=== PATIENT | male | born 2000 | race American Indian/Alaskan Native ===

== ENCOUNTER 2025-04-21 21:31 | Emergency (ER) | payer SELFPAY ==
[2025-04-21 21:37] VITALS: BP 128/81
--- NOTE | 2025-04-22 00:16 | ED.SKININJ ---
HPI-Injury
General
Chief Complaint: Skin Problem
Source: patient
Exam Limitations: none
Time Seen by Provider: 04/21/25 23:17
Nursing documentation reviewed up to this point in time: agreed with
History of Present Illness-Injury
Is this injury a work related problem?: No
Is pt an associate of [facility]?: No
Initial Injury comments:
Patient to ED with stuck ring to right middle finger. He placed ring on finger 2 weeks ago and cant remove it. Brought self to ED for ring removal.
Past History
Past History
ED Past Medical History: None
Review of Systems
Review of Systems
Allergies reviewed?: Yes
All Other Systems: ROS reviewed and negative except as documented in HPI and ROS
Constitutional: Reports no symptoms
Musculoskeletal: Reports joint swelling (swelling right middle finger)
Skin: Reports other (mild swelling to right middle finger, stuck ring)
Psychiatric: Reports no symptoms
Phy Exam
General Physical Exam
General Presentation: well appearing and no apparent distress
General age: appears stated age
General Skin: warm and dry
General Habitus: normal
Musculoskeletal Exam
Musculoskeletal Exam: full ROM and neuro vasc intact
Skin Exam
Skin Exam: normal color, warm/dry and no rash
Psychiatric Exam
Psychiatric Exam: normal mood/affect
Course
Vital Signs
Initial and Last Documented VS:
Initial Vital Signs
Temp Pulse Resp BP Pulse Ox
98.0 F 72 18 128/81 98
04/21/25 21:37 04/21/25 21:37 04/21/25 21:37 04/21/25 21:37 04/21/25 21:37
Last Documented Vital Signs
Temp Pulse Resp BP Pulse Ox
98.0 F 72 18 128/81 98
04/21/25 21:37 04/21/25 21:37 04/21/25 21:37 04/21/25 21:37 04/21/25 21:37
*Pulse Oximetry
SaO2: 98
Oxygen Mode of Delivery: Room air
Patient hypoxic: no
*Critical Care Note
Total Time (30-74mins, 75-104mins- exclusive of procedures): Not Applicable
Update Note
Update Note:
Patient to ED for ring removal to right middle finger. Ring removed with ring cutter. No wounds noted on finger. Finger is neurovascularly intact (before and after removal). Will discharge home and he martha follow up with PCP. Ring secured with
patient.
ED Attending Note
-
Portions of this chart may have been created with voice recognition software.� Occasional wrong word or��sound alike� substitutions may have occurred due to the inherent limitations of voice recognition software.
Discharge Plan
Departure
Patient Disposition: Home (Routine Discharge)
Date of Disposition: 04/21/25
Time of Disposition: 23:39
Patient with high blood pressure during this ER visit?: No
Condition: Good
Covid-19: Not Applicable
Discharge Problem:
Finger swelling
Instructions: Swelling, Cold therapy for pain
Interventions
Interventions:
*Risk Screen - Suicide Last Done: 04/21/25 23:33
*General Assessment Last Done: 04/21/25 21:37
*Neglect/Abuse Screening Last Done: 04/21/25 23:33
*ED- Fall Risk Assessment Last Done: 04/21/25 23:19
*ED COVID-19 Vaccine History Last Done: 04/21/25 23:19
ED-Skin Assessment Last Done: 04/21/25 23:33
Discharge Date and Time
Print Language: ITALIAN
== END 2025-04-22 00:05 | disposition home or self-care (01) ==
LOC: EMR 21:31
PROVIDERS: EMERGENCY PHYSICIAN Emergency Medicine
DX: R22.31 Localized swelling, mass and lump, right upper limb (principal)
CPT/HCPCS: 99282